=== PATIENT | male | born 1970 | race Caucasian/White ===

== ENCOUNTER 2020-05-28 19:35 | Emergency (ER) | payer MEDICARE ==
[~2020-05-28 19:35] MED LIST: AMARYL 2MG TABLE2 MG PO; ASPIRIN EC81 MG PO; ATORVASTATIN CA80 MG PO; BUPROPION HCL150 M1 PO; CLARITIN 10MG T10 MG PO; DOXEPIN HCL100 MG PO; FISH OIL 1,0001 EACH PO; FLUOXETINE HCL60 MG PO; GLIMEPIRIDE4 MG PO; LATUDA20 MG PO; LEVEMIR FL100 UNIT/1 SQ; LO-DOSE ASPIRIN81 MG PO; LOPRESSOR 25 MG25 MG PO; LYRICA150 MG PO; METFORMIN HCL1000 M1 PO; METFORMIN HCL1000 MG PO; NITRO-DUR 0.4 MG1 EA TOP; NITROSTAT0.4 MG SL; PRAZOSIN HCL2 MG PO; TOPAMAX 25 MG T25 MG PO; TYLENOL EXTRA500 MG PO; WELLBUTRIN XL150 M1 PO; WELLBUTRIN XL150 MG PO; ZOCOR 40 MG TAB40 MG PO
[2020-05-28 20:00] LABS: HEMOGLOBIN 15.9 gm/dl (14.0-17.5); RED BLOOD COUNT 5.45 M/UL (4.20-5.50); WHITE BLOOD COUNT 8.2 K/UL (4.5-11.0)
[2020-05-28 20:29] LABS: BUN/CREATININE RATIO 16 (0-10)
[2020-05-28] MEDS ORDERED: BUSPIRONE HCL5 MG PO (22:26)
== END 2020-05-28 23:55 | disposition home or self-care (01) ==
LOC: ER1 19:35
PROVIDERS: Physician Assistant
DX: R07.89 Other chest pain (principal); I10 Essential (primary) hypertension; F17.200 Nicotine dependence, unspecified, uncomplicated; Z88.8 Allergy status to other drugs, medicaments and biological substances
CPT/HCPCS: 71045; 80053; 82550; 82553; 83690; 83874; 84484; 85025; 93005; 96374; 96375; 99285; J2060; J7030

== ENCOUNTER → 2020-09-24 | Outpatient (CLI) | payer OTHER ==
[~2020-09-24] MED LIST changes: +BUSPIRONE HCL5 MG PO
== END ==
LOC: KOH-I 10:32
DX: M79.672 Pain in left foot (principal); M19.072 Primary osteoarthritis, left ankle and foot
CPT/HCPCS: 73630

== ENCOUNTER → 2020-10-01 | Outpatient (CLI) | payer OTHER | LOC: KOH-I 10:55 | DX: M25.572 Pain in left ankle and joints of left foot (principal); G89.29 Other chronic pain; M19.172 Post-traumatic osteoarthritis, left ankle and foot; M25.9 Joint disorder, unspecified; R93.6 Abnormal findings on diagnostic imaging of limbs; Z98.1 Arthrodesis status | CPT/HCPCS: 73721 ==

== ENCOUNTER → 2020-11-05 | Outpatient (CLI) | payer OTHER | LOC: KOH-I 13:00 | DX: M51.16 Intervertebral disc disorders with radiculopathy, lumbar region (principal) | CPT/HCPCS: 72148 ==

== ENCOUNTER → 2021-09-10 | Outpatient (CLI) | payer MEDICARE | LOC: KOH-I 15:27 | DX: R10.32 Left lower quadrant pain (principal) | CPT/HCPCS: 72192 ==